=== PATIENT | female | born 1975 | race Caucasian/White ===

== ENCOUNTER 2022-12-30 05:13 | Day surgery (SDC) | payer OTHER ==
[~2022-12-30] VITALS: Ht 165.1 cm; Wt 89.4 kg
[~2022-12-30 05:13] MED LIST: IRBESARTAN-HCT1 EAC1 PO; LISINOPRIL5 MG PO; VERAPAMIL ER120 MG PO
[2022-12-30] MEDS ORDERED: ZIPSOR25 MG PO (08:56)
== END 2022-12-30 12:30 | disposition home or self-care (01) ==
LOC: CIR.AMB 05:13
PROVIDERS: ATTEND Obstetrics & Gynecology
DX: N80.121 Deep endometriosis of right ovary (principal); N83.291 Other ovarian cyst, right side; R10.2 Pelvic and perineal pain; I10 Essential (primary) hypertension; E03.9 Hypothyroidism, unspecified; Z20.822 Contact with and (suspected) exposure to COVID-19

== ENCOUNTER 2023-06-25 08:30 | Inpatient (IN) | payer OTHER ==
[~2023-06-25] VITALS: Ht 165.1 cm; Wt 89.4 kg
[~2023-06-25 08:30] MED LIST changes: +ZIPSOR25 MG PO
[2023-06-25 11:48] LABS: HEMATOCRIT 33.8 % (36.0-45.00); HEMOGLOBIN 10.5 g/dL (12.0-15.00); MEAN CORPUSCULAR HEMOGLOBIN 22.4 pg (27.00-32.0); MEAN CORPUSCULAR HGB CONC 31.1 g/dl (32.0-36.0); PLATELET COUNT 581 K/uL (150-450); RED CELL DISTRIBUTION WIDTH 18.4 % (11.5-14.5)
[2023-06-30 18:19] LABS: HEMATOCRIT 32.1 % (36.0-45.00); HEMOGLOBIN 9.9 g/dL (12.0-15.00); MEAN CELL VOLUME 71.2 fL (80.00-100.00); MEAN CORPUSCULAR HEMOGLOBIN 21.8 pg (27.00-32.0); MEAN CORPUSCULAR HGB CONC 30.7 g/dl (32.0-36.0); PLATELET COUNT 592 K/uL (150-450); RED BLOOD COUNT 4.51 M/uL (4.00-6.00); RED CELL DISTRIBUTION WIDTH 18.3 % (11.5-14.5)
[2023-07-01 04:13] LABS: HEMATOCRIT 32.7 % (36.0-45.00); MEAN CELL VOLUME 70.4 fL (80.00-100.00); MEAN CORPUSCULAR HEMOGLOBIN 21.6 pg (27.00-32.0); MEAN CORPUSCULAR HGB CONC 30.6 g/dl (32.0-36.0); PLATELET COUNT 580 K/uL (150-450); RED BLOOD COUNT 4.65 M/uL (4.00-6.00); RED CELL DISTRIBUTION WIDTH 18.2 % (11.5-14.5)
[2023-07-02] MEDS ORDERED: GABAPENTIN300 MG PO (06:22)
[2023-07-02] MEDS ORDERED: IBUPROFEN800 MG PO (06:22)
[2023-07-02] MEDS ORDERED: POLY119PG PO (06:22)
[2023-07-02] MEDS ORDERED: SIMETHICONE125 M1 PO (06:22)
== END 2023-07-02 09:48 | disposition home or self-care (01) | DRG 743 ==
LOC: O/R 06-30 05:20 → OB/GYN 06-30 05:20 → SURH 06-30 07:00 → OB/GYN 06-30 10:27 → SURH 06-30 10:57 → OB/GYN 07-02 09:48
PROVIDERS: ADMIT Obstetrics & Gynecology; ATTEND Obstetrics & Gynecology
PROC: 0UT60ZZ Resection of Left Fallopian Tube, Open Approach (ICD-10-PCS; 2023-06-30)
PROC: 0UT10ZZ Resection of Left Ovary, Open Approach (ICD-10-PCS; 2023-06-30)
PROC: 0DBW0ZX Excision of Peritoneum, Open Approach, Diagnostic (ICD-10-PCS; 2023-06-30)
PROC: 0UT90ZZ Resection of Uterus, Open Approach (ICD-10-PCS; principal; 2023-06-30 07:00)
DX: D25.1 Intramural leiomyoma of uterus (principal); N83.02 Follicular cyst of left ovary; N72 Inflammatory disease of cervix uteri; Z20.822 Contact with and (suspected) exposure to COVID-19; N85.02 Endometrial intraepithelial neoplasia [EIN]; N83.11 Corpus luteum cyst of right ovary